=== PATIENT | female | born 1980 | race Two or more races ===

== ENCOUNTER 2016-06-21 17:49 | Emergency (ER) | payer MEDICAID ==
[2016-06-21 18:19] LABS: % BASOPHILS 0.6 % (0.0-2.0); % EOSINOPHILS 1.8 % (0.0-5.0); % LYMPHOCYTES 17.9 % (20.0-50.0); % MONOCYTES 5.5 % (2.0-10.0); % NEUTROPHILS 74.2 % (40.0-80.0); HEMATOCRIT 42.6 % (35.0-45.0); HEMOGLOBIN 14.4 gm/dL (11.7-15.5); MEAN CELL VOLUME 83.8 fl (81-100); MEAN CORPUSCULAR HEMOGLOBIN 28.4 pg (27.0-31.0); MEAN CORPUSCULAR HGB CONC 33.9 pg (28.0-36.0); MEAN PLATELET VOLUME 9.3 fl; NEUTROPHILE ABSOLUTE 6.4 Th/cmm (1.8-8.0); PLATELET COUNT 219 Th/cmm (150-400); RED BLOOD COUNT 5.08 Mil/cmm (3.80-5.10); RED CELL DISTRIBUTION WIDTH 12.2 % (11.5-20.0); WHITE BLOOD COUNT 8.8 Th/cmm (4.8-10.8)
[2016-06-21 18:35] LABS: ALB/GLOB RATIO 1.6 (1.0-1.8); ALKALINE PHOSPHATASE 44 U/L (34-104); ANION GAP 15.5 (7.0-16.0); BILIRUBIN,TOTAL 0.3 mg/dL (0.3-1.0); BUN - UREA NITROGEN 18 mg/dL (7-25); CALCIUM SERUM 9.2 mg/dL (8.6-10.3); CARBON DIOXIDE 25.5 mEq/L (21.0-31.0); CHLORIDE 104 mEq/L (98-107); CREATININE - SERUM 0.9 mg/dL (0.6-1.2); GLUCOSE 84 mg/dL (70-105); SGOT 13 U/L (13-39); SGPT/ALT 17 U/L (7-52); SODIUM SERUM 141 mEq/L (136-145)
[2016-06-21 18:43] LABS: URINE BILIRUBIN NEGATIVE (NEGATIVE); URINE BLOOD TRACE (NEGATIVE); URINE COLOR YELLOW; URINE GLUCOSE (UA) NEGATIVE (NEGATIVE); URINE KETONE TRACE mg/dL (NEGATIVE)
[2016-06-21 18:44] LABS: URINE BACTERIA NONE SEEN /hpf (NONE SEEN); URINE EPITHELIAL CELLS MANY /lpf (FEW); URINE PROTEIN NEGATIVE (NEGATIVE); URINE RBC 0-2 /hpf (0-5); URINE UROBILINOGEN 0.2 E.U./dL (0.2 - 1.0); URINE WBC NONE SEEN /hpf (0-5)
[2016-06-21 18:45] LABS: URINE AMORPHOUS SEDIMENT MODERATE PHOSPHATES (NONE SEEN)
--- NOTE | 2016-06-21 18:49 | ED Physician Chart ---
Chief Complaint/HPI - Patient Information Date Seen:: 06/21/16 Time Seen:: 18:13 Chief Complaint:: BACK PAIN History of Present Illness:: THIS IS A 36 YR OLD FEMALE WITH THE SUDDEN ONSET OF LEFT LOWER BACK PAIN THAT STARTED EARLIER TODAY. SHE HAS NOT BEEN LIFTING OR FALLEN. SHE DENIES RENAL STONES AND BACK TRAUMA IN THE PAST. THE PAIN DOES NOT RADIATE. SHE Allergies:: Allergies Allergy/AdvReac Type Severity Reaction Status Date / Time No Known Allergies Allergy Verified 06/21/16 18:05 Vitals:: Vital Signs - 8 hr 06/21/16 18:08 Temp 98.2 F HR 54 RR 17 BP 149/83 O2 Sat % 100 Historian:: Patient Review:: Nurse's Note Reviewed Review of Systems - Review of Systems General/Constitutional: No fever, No chills, No weight loss, No weakness, No diaphoresis, No edema, No loss of appetite Skin: No skin lesions, No rash, No bruising Head: No headache, No light-headedness Eyes: No loss of vision, No pain, No diplopia ENT: No earache, No nasal drainage, No sore throat, No tinnitus Neck: No neck pain, No swelling, No thyromegaly, No stiffness, No mass noted Cardio Vascular: No chest pain, No palpitations, No PND, No orthopnea, No edema Pulmonary: No SOB, No cough, No sputum, No wheezing GI: No nausea, No vomiting, No diarrhea, No pain, No melena, No hematochezia, No constipation, No hematemesis G/U: No dysuria, No frequency, No hematuria Musculoskeletal: No bone or joint pain, Back pain, No muscle pain Endocrine: No polyuria, No polydipsia Psychiatric: No prior psych history, No depression, No anxiety, No suicidal ideation Hematopoietic: No bruising, No lymphadenopathy Allergic/Immuno: No urticaria, No angioedema Neurological: No syncope, No focal symptoms, No weakness, No paresthesia, No headache, No seizure, No dizziness, No confusion, No vertigo Past Medical History - Past Medical History Obtainable: Yes Past Medical History: No significant medical hx Family History: None Social History: Non Smoker, No Alcohol, No Drug Use Surgical History: Appendectomy, Cholecystectomy, (FOUR C-SECTIONS) Psychiatricy History: None Medication: Reviewed Family Medical History - Family Member Father History Unknown: Yes Ethnicity: Living Status: Still Living Hx Family Diabetes: Yes Physical Exam - Physical Examination General/Constitutional: Awake, Well-developed, well-nourished, Alert, No distress, GCS 15, Non-toxic appearing, Ambulatory Head: Atraumatic Eyes: Lids, conjuctiva normal, PERRL, EOMI Skin: Nl inspection, No rash, No skin lesions, No ecchymosis, Well hydrated, No lymphadenopathy ENMT: External ears, nose nl, Nasal exam nl, Lips, teeth, gums nl Neck: Nontender, Full ROM w/o pain, No JVD, No nuchal rigidity, No bruit, No mass, No stridor Respiratory: Nl effort/Exclusion, Clear to Auscultation, No Wheeze/Rhonchi/Rales Cardio Vascular: RRR, No murmur, gallop, rubs, NL S1 S2 GI: No tenderness/rebounding/guarding, No organomegaly, No hernia, Normal BS's, Nondistended, No mass/bruits, No McBurney tenderness : No CVA tenderness Extremities: No tenderness or effusion, Full ROM, normal strength in all extremities, No edema, Normal digits & nails Neuro/Psych: Alert/oriented, DTR's symmetric, Normal sensory exam, Normal motor strength, Judgement/insight normal, Mood normal, Normal gait, No focal deficits Misc: Normal back (THERE IS TENDERNESS OF THE LOWER BACK ON THE LEFT SIDE WITH PAINFUL BUT NORMAL ROM.), No paraspinal tenderness Labs/Radiology/EKG Results - Lab Results Results: Laboratory Tests 06/21/16 18:00 Urine Test NEGATIVE - Radiology Results Results: CT SCAN = NO ACUTE FINDING. ED Septic Shock - . Is Septic Shock (SBP<90, OR Lactate>4 mmol\L) present?: No - <6hrs of presentation: Vital Signs: Vital Signs - 8 hr 06/21/16 18:08 Temp 98.2 F HR 54 RR 17 BP 149/83 O2 Sat % 100 Reassessment (Disposition) - Reassessment Reassessment Condition:: Improved - Diagnosis Diagnosis:: BACK PAIN - Aftercare/Follow up Instructions Aftercare/Follow-Up Instructions:: Counseled pt regarding lab results/diagnosis & need follow up, Refer to Discharge Instructions, Counseled pt & family regarding lab results/diagnosis & need follow up - Patient Disposition Discharge/Transfer:: Home Condition at Disposition:: Improved ED Discharge Plan - Patient Disposition Admit/Discharge/Transfer: PT DISCHARGED HOME Condition at Disposition: Improved
--- NOTE | 2016-06-22 11:08 | Diagnostic Imaging Report ---
History: Abdominal pain Technique: Serial axial images were performed through the abdomen and pelvis and then reformatted in sagittal and coronal planes. No IV or oral contrast. CT DI is 12. DLP 591 Findings: Lung bases clear. Liver and spleen are normal in size without focal mass. No renal masses stones or hydronephrosis. No masses or enlargement of the adrenal glands. There is mild diffuse prominence of the pancreas without peripancreatic fluid collections. The gallbladder is been removed. There is no distention of bowel loops. There is a small umbilical hernia containing fat. The appendix is normal in appearance. In the pelvis uterus is enlarged and anteverted. Prominent bilateral ovaries. The bladder is smooth walled. There is no free fluid. No lytic or blastic lesions of bone on bone windows. Impression: Mild diffuse prominence of the pancreas. Please correlate with amylase and lipase levels. Prominent bilateral ovaries. This may be due to the presence of small cysts but pelvic ultrasound is suggested to confirm this. There is a midline abdominal hernia containing fat
== END 2016-06-21 21:30 | disposition home or self-care (01) ==
LOC: ER 17:49
DX: M54.5 Low back pain (principal)
CPT/HCPCS: 99285; 96372; 74176; 36415; 85025; 81001; 81025; 80053; J1885